=== PATIENT | female | born 1955 | race Caucasian/White ===

== ENCOUNTER 2016-12-24 13:38 | Emergency (ER) | payer OTHER, MEDICAID ==
[~2016-12-24] VITALS: Ht 160 cm; Wt 50.8 kg
[~2016-12-24 13:38] MED LIST: CARI350T27 PO; CYCL-10 PO; DIAZ5TAB4 PO; PERC10 GT; PRO20 PO; RANI-281 PO; RIZA10TA22; TRAZ-126 PO
[2016-12-24 13:46] VITALS: BP_SYST 113
--- NOTE | 2016-12-24 14:30 | NUR ---
AMBULATED TO BED 2
--- NOTE | 2016-12-24 14:35 | NUR ---
Dr Marquez at bedside examining patient
--- NOTE | 2016-12-24 14:35 | NUR ---
Pt brought by self, A&Ox4, pt c/o mouth pain and sores 5/10,per pt symptoms started after starting antibiotics 2 weeks ago, skin pink and warm,cap refill <3, VS WNL,
--- NOTE | 2016-12-24 14:35 | NUR ---
Ember patelxiomara in EDM - 12/24/16 at 1507 by [email or web address] Pt brought but self, A&Ox4, pt c/o mouth pain and sores 5/10,per pt symptoms started after starting antibiotics 2 weeks ago, skin pink and warm,cap refill <3, VS WNL,
--- NOTE | 2016-12-24 15:07 | NUR ---
Patient given written and verbal discharge instructions and verbalizes understanding. ER MD discussed with patient the results of physical exam. Patient in stable condition. ID arm band removed. Rx of Chlorhexidine Gluconate given. Patient educated on pain management and to follow up with PMD. Pain Scale 0/10. Opportunity for questions provided and answered.
[2016-12-24 15:10] VITALS: BP_SYST 122
== END 2016-12-24 15:07 | disposition home or self-care (01) ==
LOC: SED 13:38
DX: K13.70 Unspecified lesions of oral mucosa (principal); J45.909 Unspecified asthma, uncomplicated; M06.9 Rheumatoid arthritis, unspecified; Z88.0 Allergy status to penicillin; Z88.1 Allergy status to other antibiotic agents; Z88.5 Allergy status to narcotic agent
CPT/HCPCS: 99282

== ENCOUNTER 2017-07-09 19:58 | Emergency (ER) | payer OTHER, MEDICAID ==
[~2017-07-09] VITALS: Ht 157.5 cm; Wt 54.4 kg
[2017-07-09 20:09] VITALS: BP_SYST 122
[2017-07-09] MEDS: HYDROcodone/ACETAMIN 7.5-325 MG TAB PO ONE ×2 (20:46→20:51)
[2017-07-09 21:30] VITALS: BP_SYST 126
== END 2017-07-09 21:30 | disposition home or self-care (01) ==
LOC: SED 19:58
DX: S62.617A Displaced fracture of proximal phalanx of left little finger, initial encounter for closed fracture (principal); M06.9 Rheumatoid arthritis, unspecified; J45.909 Unspecified asthma, uncomplicated; Z88.0 Allergy status to penicillin; Z88.1 Allergy status to other antibiotic agents; Z88.5 Allergy status to narcotic agent; W18.30XA Fall on same level, unspecified, initial encounter; Y93.89 Activity, other specified; Y92.89 Other specified places as the place of occurrence of the external cause; Y99.8 Other external cause status
CPT/HCPCS: 99284